=== PATIENT | male | born 1995 | race Hispanic/Latino ===

== ENCOUNTER 2024-08-10 13:11 | Emergency (ER) | payer OTHER ==
[~2024-08-10] VITALS: Ht 188 cm; Wt 129.3 kg
--- NOTE | 2024-08-10 13:23 | ERN ---
ED Note History of Present Illness Stated Complaint: SENT BY NM DOCTOR Chief Complaint: Testicular Injury/Pain Time Seen by MD: 13:15 Dictation: PATIENT IS A 28-YEAR-OLD MALE COMING IN FROM A LOCAL [facility] WITH COMPLAINTS OF BILATERAL TESTICULAR PAIN HE HAS HAD FOR ONE WEEK. HE STATES IT STARTS IN ONE SIDE THAN THEN MOVES TO THE OTHER. NO FEVER NO CHILLS NO CHANGE IN URINATION. STATES TODAY WAS THE 1ST TIME HE HAD SOUGHT HEALTH CARE FOR HIS TESTICULAR PAIN. Allergies: Coded Allergies: No Known Allergies (Unverified Allergy, Unknown, 08/10/24) Home Meds Active Scripts Ibuprofen (Ibuprofen 800 mg Tab) 800 Mg Tab, 800 MG PO Q8H PRN for fever or pain, #30 TAB 0 Refills Prov:MICHEAL WORTHY [employer] 08/10/24 Past Medical History RN Note Reviewed/Agreed w/PFSH: Yes Review of System Dictation CONSTITUTIONAL: NEGATIVE EXCEPT FOR HPI HEAD/FACE: NEGATIVE EXCEPT FOR HPI EENT: NEGATIVE EXCEPT FOR HPI RESPIRATORY: NEGATIVE EXCEPT FOR HPI GASTROINTESTINAL/ABDOMINAL: NEGATIVE EXCEPT FOR HPI GENITOURINARY: NEGATIVE EXCEPT FOR HPI BILATERAL TESTICULAR PAIN ONE WEEK MUSCULOSKELETAL: NEGATIVE EXCEPT FOR HPI INTEGUMENTARY: NEGATIVE EXCEPT FOR HPI NEUROLOGICAL/PSYCH: NEGATIVE EXCEPT FOR HPI HEMATOLOGIC/LYMPHATIC: NEGATIVE EXCEPT FOR HPI ALL SYSTEMS NEGATIVE, EXCEPT NOTED ABOVE. 13 POINT REVIEW OF SYSTEMS ASSESSED AND ALL NEGATIVE EXCEPT FOR ABOVE. Initial Vital Sign VS Vital Signs Date Time Temp Pulse Resp B/P (MAP) Pulse Ox O2 Delivery O2 Flow Rate FiO2 08/10/24 13:20 98.4 68 16 135/79 96 Room Air 0 08/10/24 14:50 21 Physical Exam Dictation VITAL SIGNS REVIEWED GENERAL APPEARANCE: ALERT, ORIENTED X 3, MILD ACUTE DISTRESS, WELL DEVELOPED, NOURISHED. HEAD AND FACE: NON-TRAUMATIC. EYES: PERRL, PINK CONJUNCTIVAS, EYELID NO TRAUMA, ANTERIOR CHAMBER WITH ARCUS SENILIS. EARS: PINNAS INTACT AND NO SIGNS OF TRAUMA OR ERYTHEMA EAR CANALS CLEAR AND NO DISCHARGE TM NO ERYTHEMA NOSE: NO DISCHARGE, NO BLEEDING. OROPHARYNX: MOUTH NORMAL, TONGUE PINK, PHARYNX CLEAR,NO ERYTHEMA, TONSILS NO EXUDATES, NO ABSCESSES NOTED, MUCOUS MEMBRANE MOIST NECK: SUPPLE, NON-TENDER, NO THYROMEGALY, NO MASSES, NO JVD, NO BRUITS BREAST:DEFERRED CHEST:NO TENDERNESS, NO CREPITUS, NO PARADOXICAL MOVEMENT, NO RETRACTIONS LUNGS:CLEAR, WELL-VENTILATED, SYMMETRIC, NO RALES, NO WHEEZING, NO RHONCHI, NO STRIDOR, GOOD BREATH SOUNDS BILATERALLY HEART: REGULAR RATE, REGULAR RHYTHM, NO MURMUR, NO GALLOPS VASCULAR: NO PERIPHERAL EDEMA, ABDOMEN: SOFT, POSITIVE BOWEL SOUNDS, NONDISTENDED, NO GUARDING, NONTENDER, NO REBOUND, NO MASSES NO HEPATOMEGALY, NO SPLENOMEGALY, NO RODRIGUEZ'S SIGN, NO HERNIAS. RECTAL: DEFERRED GENITAL: BILATERAL TESTICLES ARE DESCENDED, PATIENT IS HOODED. NO DIRECT OR INDIRECT HERNIA NOTED. NO TESTICULAR PAIN OR SWELLING. NO DISCHARGE POSITIVE CREMASTERIC REFLEX BILATERALLY NEUROLOGICAL: NORMAL SPEECH, MOTOR FUNCTION INTACT, SENSORY FUNCTION INTACT MUSCULOSKELETAL: NECK NONTENDER, FULL RANGE OF MOTION, BACK NONTENDER, FULL RANGE OF MOTION, EXTREMITIES: NONTENDER, FULL RANGE OF MOTION SKIN: COLOR PINK, DRY, NO TURGOR, NO RASH, NO LACERATIONS, NO ABRASIONS, NO CONTUSIONS. LYMPHATIC: DEFERRED Results (Laboratory/Radiology) Laboratory/Radiology Laboratory Tests Test 08/10/24 13:36 08/10/24 13:40 Urine Color YELLOW (YELLOW) Urine Appearance CLEAR (CLEAR) Urine pH 6.0 (5.0-8.0) Urine Specific [place] 1.023 (1.001-1.031) Urine Protein NEGATIVE mg/dL (NEGATIVE) Urine Glucose (UA) NEGATIVE mg/dL (NEGATIVE) Urine Ketones NEGATIVE mg/dL (NEGATIVE) Urine Occult Blood NEGATIVE (NEGATIVE) Urine Nitrate NEGATIVE (NEGATIVE) Urine Bilirubin NEGATIVE mg/dL (NEGATIVE) Urine Urobilinogen 0.2 mg/dL (0.2-1.0) Urine Leukocyte Esterase NEGATIVE [place]/uL White Blood Count 7.9 K/uL (4.8-10.8) Red Blood Count 5.53 MIL/uL (4.50-6.20) Hemoglobin 15.6 g/dL (14.0-18.0) Hematocrit 47.6 % (42-54) Mean Corpuscular Volume 86.1 fL (79-99) Mean Corpuscular Hemoglobin 28.2 pg (27.0-33.0) Mean Corpuscular Hemoglobin Concent 32.8 g/dL (32.0-36.0) Red Cell Distribution Width 12.9 % (11.0-15.5) Platelet Count 286 K/uL (130-400) Mean Platelet Volume 8.9 fL (7.5-10.5) Immature Granulocyte % (Auto) 0.3 % (0-1) Neutrophils (%) (Auto) 50.4 % (40.0-77.0) Lymphocytes (%) (Auto) 37.7 % (21.0-51.0) Monocytes (%) (Auto) 9.2 % (3.0-13.0) Eosinophils (%) (Auto) 2.1 % (0.0-8.0) Basophils (%) (Auto) 0.3 % (0.0-5.0) Neutrophils # (Auto) 4.0 K/uL (1.8-7.7) Lymphocytes # (Auto) 3.0 K/uL (1.0-4.8) Monocytes # (Auto) 0.7 K/uL (0.1-1.0) Eosinophils # (Auto) 0.17 K/uL (0.00-0.70) Basophils # (Auto) 0.02 K/uL (0.00-0.20) Absolute Immature Granulocyte (auto 0.02 K/uL (0-1) Nucleated Red Blood Cells 0.0 % (0.0-0.19) Sodium Level 140 mmol/L (136-145) Potassium Level 3.7 mmol/L (3.5-5.1) Chloride Level 103 mmol/L (101-111) Carbon Dioxide Level 29 mmol/L (21-32) Blood Urea Nitrogen 14 mg/dL (7-18) Creatinine 0.7 mg/dL (0.5-1.3) Glomerular Filtration Rate Calc 130 mL/min (>90) Random Glucose 92 mg/dL (70-105) Total Calcium 8.6 mg/dL (8.5-10.1) 1425/PATIENT HAS A LEFT INGUINAL HERNIA WITHOUT INCARCERATED OR STRANGULATION COMPLETELY UNREMARKABLE. PATIENT WILL BE DISCHARGED HOME WITH PAIN MEDS AND TOLD WORSE SUPPORTIVE UNDERWEAR AND FOLLOW UP WITH DR. SMITH. Labs Reviewed?: Yes ED Course ED Course Orders Procedure Category Date Status Time Us Scrotum & Contents US 08/10/24 Resulted 13:21 Cbc With Differential LAB 08/10/24 Complete 13:21 Urinalysis Profile LAB 08/10/24 Complete 13:21 Basic Metabolic Panel LAB 08/10/24 Complete 13:21 Ibuprofen 800 Mg Tab PHA 08/10/24 Complete (Motrin) 13:30 Current Medications Medications (Trade) Dose Ordered Sig/Gissel Route PRN Reason Start Time Stop Time Status Last Admin Dose Admin Ibuprofen (moTRIN) 800 mg ONCE ONCE PO 08/10/24 13:30 08/10/24 13:31 DC 08/10/24 13:38 Vital Signs Date Time Temp Pulse Resp B/P (MAP) Pulse Ox O2 Delivery O2 Flow Rate FiO2 08/10/24 14:50 98.2 67 19 119/65 98 Room Air* 0 21 08/10/24 13:20 98.4 68 16 135/79 96 Room Air 0 Medical Decision Making MDM MEDICAL DISCHARGE MAKING BASED ON BASIC LABS AND ULTRASOUND FOR TESTICULAR PAIN. LABS OR TEXT BOOK NORMAL PATIENT HAS A LEFT INGUINAL HERNIA THAT IS NOT STRANGULATED OR INCARCERATED. DISCHARGED HOME WITH PAIN MEDS, TOLD TO WEAR ATHLETIC SUPPORTER, FOLLOW UP WITH AND CALL FOR AN APPOINTMENT DX & DISP Disposition: Discharge Departure Impression: Primary Impression: Left inguinal hernia Condition: Stable Scripts Ibuprofen (Ibuprofen 800 mg Tab) 800 Mg Tab 800 MG PO Q8H PRN for fever or pain, #30 TAB 0 Refills Prov: MICHEAL WORTHY [employer] 08/10/24 Additional Instructions: FOLLOW-UP WITH PRIMARY CARE PROVIDER IN 1 TO 2 DAYS. TAKE MEDICATIONS DIRECTED HERE IN THE EMERGENCY ROOM. OKAY TO CONTINUE HOME MEDICATIONS UNLESS OTHERWISE DISCUSSED DURING YOUR VISIT IN THE EMERGENCY ROOM TODAY. RETURN TO YOUR NEAREST EMERGENCY ROOM IF SYMPTOMS WORSEN OR IF THERE IS NO IMPROVEMENT. CALL 911 IF YOU NEED IMMEDIATE ASSISTANCE. TAKE TYLENOL OR MOTRIN [id number] NEEDED AND IF NO CONTRAINDICATIONS ARE PRESENT. INCREASE ORAL HYDRATION. A WOUND CULTURE OR URINE CULTURE WAS ORDERED HERE IN THE EMERGENCY ROOM DEPARTMENT PLEASE FOLLOW-UP WITH PRIMARY CARE PROVIDER AND ADVISE THEM TO GET REPEAT PORTS FROM OUR FACILITY. IF YOU HAD ANY JORDI WRAP/SPLINTS THAT WERE APPLIED HERE, PLEASE DO NOT REMOVE THEM UNTIL YOU SEE YOUR PRIMARY CARE OR SPECIALTY. SUGGEST WEARING ATHLETIC SUPPORTER AT ALL TIMES. CALL GENERAL SURGEON FOR APPOINTMENT IN THE NEXT 1-2 DAYS. IBUPROFEN NEEDED FOR PAIN. Referrals: CATY KULKARNI MD Time of Disposition: 14:28 I have reviewed the case, and I agree with, Diagnosis and Plan MICHEAL WORTHY NP Aug 10, 2024 13:23
[2024-08-10] MEDS: ibuPROFEN 800 MG TAB PO ONE (13:38)
[2024-08-10 13:45] LABS: APPEARANCE,URINE CLEAR (CLEAR); BILIRUBIN,URINE NEGATIVE (NEGATIVE); COLOR,URINE YELLOW (YELLOW); GLUCOSE, URINE (UA) NEGATIVE (NEGATIVE); KETONES,URINE NEGATIVE (NEGATIVE); LEUKOCYTE ESTERASE ,URINE NEGATIVE Leu/uL (NEGATIVE); NITRATE,URINE NEGATIVE (NEGATIVE); OCCULT BLOOD,URINE NEGATIVE (NEGATIVE); PROTEIN,URINE NEGATIVE (NEGATIVE); UROBILINOGEN,URINE 0.2 mg/dL (0.2-1.0)
[2024-08-10 13:46] LABS: ADD UA MICROSCOPIC NO
[2024-08-10 13:52] LABS: BASOPHILS # (AUTO) 0.02 K/uL (0.00-0.20); BASOPHILS % (AUTO) 0.3 % (0.0-5.0); EOSINOPHILS # (AUTO) 0.17 K/uL (0.00-0.70); EOSINOPHILS % (AUTO) 2.1 % (0.0-8.0); HEMATOCRIT 47.6 % (42-54); IMMATURE GRANULOCYTE ABSOLUTE 0.02 K/uL (0-1); LYMPHOCYTES % (AUTO) 37.7 % (21.0-51.0); MEAN CORPUSCULAR HEMOGLOBIN 28.2 pg (27.0-33.0); MEAN CORPUSCULAR HGB CONC 32.8 g/dL (32.0-36.0); MEAN CORPUSCULAR VOLUME 86.1 fL (79-99); MONOCYTES # (AUTO) 0.7 K/uL (0.1-1.0); MONOCYTES % (AUTO) 9.2 % (3.0-13.0); NEUTROPHILS % (AUTO) 50.4 % (40.0-77.0); PLATELET COUNT (AUTO) 286 K/uL (130-400); RED BLOOD CELL COUNT(AUTO) 5.53 MIL/uL (4.50-6.20); RED CELL DISTRIBUTION WIDTH 12.9 % (11.0-15.5); WHITE BLOOD COUNT (AUTO) 7.9 K/uL (4.8-10.8)
[2024-08-10 13:59] LABS: CREATININE 0.7 mg/dL (0.5-1.3); POTASSIUM 3.7 mmol/L (3.5-5.1)
[2024-08-10] MEDS ORDERED: IBUP-2077 PO (14:29)
--- NOTE | 2024-08-10 14:38 | HMCIMG ---
US SCROTUM & CONTENTS HISTORY: Testicular pain COMPARISON: None TECHNIQUE: Duplex scrotal ultrasound study was performed. FINDINGS: The right testes measures 3.6 x 2.1 x 2.7 cm. The left testes measures 3.8 x 2 x 2.6 cm. No evidence of intratesticular mass or abnormal calcification is seen. Normal flow is demonstrated in the testes and epididymides bilaterally. No hydroceles or varicocele is seen. There is left inguinal hernia measuring 2.7 x 1.6 cm. IMPRESSION: 1. No evidence of intratesticular mass is seen. 2. Normal flow is demonstrated of both testes. [Internal hernia with fat content.
[2024-08-10 14:50] VITALS: BP 119/65; PULSE 67; RESP 19; TEMP 98.3; O2SAT 98
== END 2024-08-10 14:51 | disposition home or self-care (01) ==
LOC: EDH 13:11
DX: K40.90 Unilateral inguinal hernia, without obstruction or gangrene, not specified as recurrent (principal); Z79.899 Other long term (current) drug therapy
CPT/HCPCS: 36415; 76870; 80048; 81003; 85025; 99284